=== PATIENT | female | born 1935 ===

== ENCOUNTER 2018-02-09 14:32 | Emergency (ER) | payer MEDICARE, SELFPAY ==
[2018-02-09 14:40] VITALS: BP 141/76; PULSE 73; RESP 16; TEMP 37.2; O2SAT 95
--- NOTE | 2018-02-09 15:03 | DI.RPTCT_ITS ---
SYMPTOM/DIAGNOSIS: INTERMITTENT DIZZINESS, HISTORY HIGH BLOOD PRESSURE NONCONTRAST HEAD CT: There are no prior comparison exams. No intracranial infarct, hemorrhage or mass is seen. There is no evidence of skull fracture The sinuses and mastoid air cells appear clear where visualized. There is mild underlying atrophy. IMPRESSION: No acute abnormality.
--- NOTE | 2018-02-09 15:06 | ED.GENADUL_ITS ---
Disposition Clinical Impression: Peripheral vertigo Condition: Good Instructions: Benign Paroxysmal Positional Vertigo (ED) Additional Instructions: See enclosed instructions. Use meclizine, if needed for persistent vertiginous symptoms. I recommend that she sleep with the head of the bed elevated 3 pillows for the next 2-3 nights. Small, frequent fluids to maintain hydration. Return or see nearest healthcare provider if you develop headache, worsening dizziness, or any other acute concerns. Please continue all of her regularly prescribed medications. You underwent CAT scan of the head, chest x-ray. These studies were unremarkable for acute process. Your chemistry panel: Sodium 144, potassium 3.8, chloride 107, bicarb 28, BUN 12 , creatinine 0.8, glucose 112, magnesium 2.0, calcium 8.9, total bilirubin 0.5, AST 27, ALT 37, albumin 3.8, troponin less than 0.02 Complete blood count: White blood count 5.9, hematocrit 41, platelets 253. Prescriptions: Meclizine [Antivert] 12.5 mg PO Q6H PRN PRN #20 tab PRN Reason: Dizziness Medical Decision Making - Lab Data Laboratory Results - last 24 hr 02/09/18 02/09/18 15:30 15:30 WBC 5.94 RBC 4.47 Hgb 13.8 Hct 41.1 MCV 91.9 MCH 30.9 MCHC 33.6 RDW 13.3 Plt Count 253 MPV 9.9 Immature Gran % 0.2 Neutrophils % 55.6 Lymphocytes % 36.2 Monocytes % 6.2 Eosinophils % 1.5 Basophils % 0.3 Absolute Neutrophils 3.30 Absolute Lymphocytes 2.15 Absolute Monocytes 0.37 Absolute Eosinophils 0.09 Absolute Basophils 0.02 Sodium 144 Potassium 3.8 Chloride 107 Carbon Dioxide 28.5 Anion Gap 8.5 BUN 12 Creatinine 0.89 Estimated GFR/1.73 m2 >= 60.00 Glucose 112 H Calcium 8.9 Magnesium 2.0 Total Bilirubin 0.5 AST 27 ALT 37 Alkaline Phosphatase 64 Troponin I < 0.02 Total Protein 7.0 Albumin 3.8 Results reviewed for labs ordered during visit: Yes - Radiology Data Radiology results: report reviewed, image reviewed - Medical Decision Making 83-year-old female [place], and [place], presents with 3 days of intermittent episodes of morning dizziness begins with turning of her head. She is pleasant, delightful, afebrile with unremarkable vital signs. Exam is unremarkable including neurologic exam with finger to nose, Romberg, gait, cranial nerves II through XII testing. Differential diagnosis would include BPPV/peripheral vertigo, intracranial mass or stroke, dehydration. Patient given small amount of fluid, referred for CT scan of the head and chest x-ray Diagnostics reveal: Sodium 144, potassium 3.8, chloride 107, bicarb 28, BUN 12, creatinine 0.8, glucose 112, magnesium 2.0, calcium 8.9, total bilirubin 0.5, AST 27, ALT 37, albumin 3.8, troponin less than 0.02 Complete blood count: White blood count 5.9, hematocrit 41, platelets 253 CT head without acute intracranial abnormality no large territorial stroke or hemorrhage. Chest x-ray without acute findings. Patient improved with administration of meclizine. She stable for outpatient management. Given copy of her findings and her discharge instructions. She will follow up with primary care physician for recheck. I will prescribe her meclizine to be used as needed for peripheral vertigo. 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 She reports 3 days of intermittent episodes of dizziness. She states upon awakening, with rolling over, she develops vertiginous spinning sensation that improves with rest. She has not had a fall, headache, fever, chills, neck pain. She has not had difficulty with speech, gait, numbness. She had no motor weakness. It is been mild, intermittent, resolves on its own. It is focal. She has not had unsteadiness of gait or of hand. - Related Data Meclizine [Antivert] 12.5 mg PO Q6H PRN PRN #20 tab 02/09/18 Allergies Allergy/AdvReac Type Severity Reaction Status Date / Time codeine AdvReac Mild Other (See Unverified 02/09/18 15:37 Comment) Review of Systems Respiratory: denies: shortness of breath Cardiovascular: denies: chest pain, palpitations Musculoskeletal: denies: joint swelling Neurological: denies: headache (8 systems reviewed, otherwise negative), weakness, numbness, paresthesias, abnormal gait Past Medical History - Past Medical History See nursing note General Exam - General Limitations: no limitations General appearance: alert, in no apparent distress - Head Head exam: Present: atraumatic, normocephalic - Eye Eye exam: Present: PERRL, EOMI - ENT ENT exam: Present: normal exam, TM's normal bilaterally - Neck Neck exam: Present: normal inspection, full ROM. Absent: tenderness, meningismus - Respiratory Respiratory exam: Present: normal lung sounds bilaterally. Absent: respiratory distress - Cardiovascular Cardiovascular Exam: Present: regular rate, normal rhythm. Absent: systolic murmur - GI/Abdominal GI/Abdominal exam: Present: soft. Absent: distended, tenderness - Extremities Exam Extremities exam: Present: normal inspection, normal capillary refill - Neurological Exam Neurological exam: Present: alert, oriented X3, normal gait, other (Finger to nose intact, negative Romberg, finger to nose intact). Absent: CN II-XII intact , abnormal gait, motor sensory deficit - Psychiatric Psychiatric exam: Present: normal affect, normal mood - Skin Skin exam: Present: warm, dry, intact Course Vital Signs - 24 hr 02/09/18 14:40 Temperature 37.2 C Pulse 73 Respiratory 16 Rate Blood Pressure 141/76 Pulse Oximetry 95
--- NOTE | 2018-02-09 15:07 | DI.REPORT_ITS ---
SYMPTOM/DIAGNOSIS: INTERMITTENT DIZZINESS PA AND LATERAL CHEST: There are no prior comparison exams. The heart size is within normal limits. A moderate size hiatal hernia is noted. The lungs appear clear. There is a biconvex thoracolumbar scoliosis. Surgical clips are seen in the right upper quadrant. IMPRESSION: No acute abnormality.
--- NOTE | 2018-02-09 15:11 | DI.RPTCT_ITS ---
SYMPTOM/DIAGNOSIS: INTERMITTENT DIZZINESS, HTN CT ANGIOGRAPHY HEAD AND NECK: CT angiography was performed with multi slice acquisition and multi planar and 3D reconstruction. There is no evidence of dissection, occlusion or significant stenosis in the [place] vasculature or in the neck. No aneurysm is identified. Mild vascular calcification are seen. There is a normal variant of a common origin of the innominate and left common carotid artery. Degenerative changes are seen in the cervical spine. Small thyroid nodules are incidentally noted. IMPRESSION: Mild vascular calcifications without significant stenosis, evidence of dissection or aneurysm.
[2018-02-09 15:15] VITALS: RESP 18
[2018-02-09] MEDS: Meclizine 25 MG TAB PO (15:42)
[2018-02-09 15:46] LABS: Abs Immature Grans 0.01 k/cumm (0.0-0.09); Absolute Basophil Count 0.02 k/cumm (0.0-0.2); Absolute Eosinophil Count 0.09 k/cumm (0.0-0.7); Absolute Lymphocyte Count 2.15 k/cumm (1.2-3.4); Absolute Monocyte Count 0.37 k/cumm (0.11-0.7); Basophils % 0.3; Eosinophils % 1.5; HCT 41.1 % (36.0-46.0); HGB 13.8 g/dL (12.0-15.5); Immature Grans % 0.2; Lymphocytes % 36.2; Mean Corp. HGB Concentration 33.6 g/dL (32.0-36.0); Mean Corpuscular Hemoglobin 30.9 pg (27.0-33.0); Mean Corpuscular Volume 91.9 fL (80-95); Mean Platelet Volume 9.9 fL (8.0-11.0); Monocytes % 6.2; Neutrophils % 55.6; Platelet Count 253 x1000/uL (130-400); RBC 4.47 m/cumm (4.00-5.20); RBC Distribution Width 13.3 % (11.7-14.6); White Blood Cell Count 5.94 k/cumm (4.4-10.8)
[2018-02-09 16:06] LABS: ALT 37 U/L (12-78); AST 27 U/L (15-37); Albumin 3.8 g/dL (3.4-5.0); Alkaline Phosphatase 64 U/L (46-116); Anion Gap 8.5 mmol/L (3-11); BUN 12 mg/dL (7-18); Bilirubin, Total 0.5 mg/dL (0.2-1.0); CO2 28.5 mmol/L (21.0-32.0); CREATININE 0.89 mg/dL (0.55-1.02); Calcium 8.9 mg/dL (8.5-10.1); Chloride 107 mmol/L (98-107); Glucose 112 mg/dL (70-100); Potassium 3.8 mmol/L (3.5-5.1); Sodium 144 mmol/L (136-145)
[2018-02-09 16:07] LABS: Troponin I < 0.02 ng/mL (0.00-0.06)
--- NOTE | 2018-02-09 16:48 | DI.VRAD_ITS ---
EXAM: CT Head Without Intravenous Contrast CLINICAL HISTORY: 83 years old, female; Signs and symptoms; Dizziness; Patient HX: Intermittent dizziness, HTN TECHNIQUE: Axial computed tomography images of the head/brain without intravenous contrast. Coronal and sagittal reformatted images were created and reviewed. COMPARISON: No relevant prior studies available. FINDINGS: Brain: Mild global cerebral atrophy is consistent with patient's age. There is mild diffuse heterogeneity of the white matter attenuation, consistent with chronic white matter ischemic changes. Hypodensity within the subcortical white matter of the anterior aspect of the superior frontal gyrus (axial images 25 through 32) consistent with subcortical white matter ischemic change, likely chronic. No large vascular territory acute stroke identified. No hemorrhage. Ventricles: Unremarkable. No ventriculomegaly. Bones/joints: Unremarkable. No acute fracture. Soft tissues: Unremarkable. Vasculature: Mild atherosclerosis of the cavernous carotid arteries. Sinuses: Unremarkable as visualized. No acute sinusitis. Mastoid air cells: Unremarkable as visualized. No mastoid effusion. IMPRESSION: 1. No acute intracranial abnormality. 2. Mild global atrophy. 3. Chronic white matter ischemic change. Dictated and Authenticated by: Dick Mendez MD. Ordering:BILL THOMPSON MD
--- NOTE | 2018-02-09 16:49 | DI.VRAD_ITS ---
EXAM: XR Chest, 2 Views CLINICAL HISTORY: 83 years old, female; Signs and symptoms; Other: Intermittent dizziness; Patient HX: Intermittent dizziness, h/o high blood pressure TECHNIQUE: Frontal and lateral views of the chest. COMPARISON: No relevant prior studies available. FINDINGS: Lungs: Unremarkable. No consolidation. Pleural space: Unremarkable. No pneumothorax. Heart: Unremarkable. No cardiomegaly. Mediastinum: Large gastric hiatus hernia. Bones/joints: Osteopenia. Degenerative spondylosis throughout the thoracic spine Moderate scoliosis of the thoracolumbar spine. Upper abdomen: Status post cholecystectomy. IMPRESSION: No acute findings. Dictated and Authenticated by: Dick Mendez MD. Ordering:BILL THOMPSON MD
--- NOTE | 2018-02-09 17:32 | DI.VRAD_ITS ---
EXAM: CT Angiography Head With Intravenous Contrast CLINICAL HISTORY: 83 years old, female; Signs and symptoms; Dizziness and giddiness; Patient HX: Intermittent dizziness, h/o hypertension TECHNIQUE: Axial computed tomographic angiography images of the head with intravenous contrast using CT angiography protocol. MIP reconstructed images were created and reviewed. COMPARISON: No relevant prior studies available. FINDINGS: Right internal carotid artery: Calcification of the RIGHT cavernous carotid artery without significant stenosis. No aneurysm. Right anterior cerebral artery: Coronal series 6, image 30 demonstrates a 1 mm focal area of enhancement along the inferior aspect of the A2 segment of the RIGHT anterior cerebral artery. Due to relatively thick axial acquired images (3 mm slice thickness) this is not included on the axial images. However, the sagittal image series 7, image 29) does not demonstrate a focal outpouching and therefore this finding is consistent with a normal loop and not an aneurysm. No occlusion or significant stenosis. Right middle cerebral artery: Unremarkable. No occlusion or significant stenosis. No aneurysm. Right posterior cerebral artery: See below. Right vertebral artery: Unremarkable as visualized. Left internal carotid artery: Calcification of the LEFT cavernous carotid artery without significant stenosis. Patent RIGHT posterior communicating artery. No aneurysm. Left anterior cerebral artery: Unremarkable. No occlusion or significant stenosis. No aneurysm. Left middle cerebral artery: Unremarkable. No occlusion or significant stenosis. No aneurysm. Left posterior cerebral artery: Unremarkable. No occlusion or significant stenosis. No aneurysm. Left vertebral artery: Unremarkable as visualized. Basilar artery: Unremarkable. No occlusion or significant stenosis. No aneurysm. IMPRESSION: No hemodynamically significant stenosis. EXAM: CT Angiography Neck With Intravenous Contrast CLINICAL HISTORY: 83 years old, female; Signs and symptoms; Dizziness and giddiness; Patient HX: Intermittent dizziness, h/o hypertension TECHNIQUE: Axial computed tomographic angiography images of the neck with intravenous contrast using CT angiography protocol. MIP reconstructed images were created and reviewed. COMPARISON: CT - HEAD WITHOUT CONTRAST 2018-02-09 16:07 FINDINGS: VASCULATURE: Right common carotid artery: Calcification of the RIGHT common carotid artery bifurcation without significant stenosis. No dissection or occlusion. Right internal carotid artery: Unremarkable. Extracranial segment is patent with no significant stenosis. No dissection or occlusion. Right external carotid artery: Calcification at the origin of the RIGHT external carotid artery with mild stenosis. No occlusion. Right vertebral artery: Unremarkable. No significant stenosis. No dissection or occlusion. Left common carotid artery: Common origin of the innominate and LEFT common carotid artery, a normal variant. No significant stenosis. No dissection or occlusion. Left internal carotid artery: Unremarkable. Extracranial segment is patent with no significant stenosis. No dissection or occlusion. Left external carotid artery: Unremarkable. No occlusion. Left vertebral artery: Unremarkable. No significant stenosis. No dissection or occlusion. Other vasculature: Calcification of the origin of the LEFT subclavian artery with no significant stenosis. NECK: Bones/joints: Degenerative change of the cervical spine and RIGHT shoulder joint. No acute fracture. No dislocation. Soft tissues: Soft tissues are unremarkable. No mass. Thyroid: LEFT thyroid nodules, measuring up to 10 mm. RIGHT thyroid nodule measuring up to 5 mm. Punctate calcification in the LEFT thyroid lobe. Lung apices: Limited evaluation of the lungs demonstrates dependent atelectasis. Heart: Coronary artery calcifications present. CAROTID STENOSIS REFERENCE USING NASCET CRITERIA: % ICA stenosis = (1 - narrowest ICA diameter/diameter of distal cervical ICA) x 100. Mild - <50% stenosis. Moderate - 50-69% stenosis. Severe - 70-94% stenosis. Near occlusion - 95-99% stenosis. Occluded - 100% stenosis. IMPRESSION: No hemodynamically significant stenosis. Bilateral thyroid nodules measuring up to 10 mm on the LEFT and 5 mm on the RIGHT. ACR White Paper guidelines (Ricardo YODER, et al. JACR 2015;12(2):143-50) suggest that no follow-up is necessary. Dictated and Authenticated by: Dori Crouch MD. Ordering:BILL THOMPSON MD
[2018-02-09 17:54] VITALS: BP 153/72; PULSE 74; RESP 18; TEMP 36.9; O2SAT 99
== END 2018-02-09 17:55 ==
PROVIDERS: Emergency Provider Emergency Medicine
DX: H81.399 Other peripheral vertigo, unspecified ear (principal); I10 Essential (primary) hypertension
CPT/HCPCS: 70450; 70496; 70498; 71046; 93005; 99284; 99285; 36415; 80053; 83735; 84484; 85025; 93010